=== PATIENT | male | born 1950 | race American Indian/Alaskan Native ===

== ENCOUNTER 2017-06-05 23:05 | Emergency (ER) | payer MEDICARE ==
[2017-06-05 23:05] VITALS: BMI 42.4
[2017-06-05 23:18] VITALS: TEMP 97.9; O2SAT 99
--- NOTE | 2017-06-05 23:26 | C.PDOC ---
History Of Present Illness Pt presents with increasing cough , nonproductive , increasing leg edema. has some chest pain , but only when he coughs. Unable to sleep due to cough. No f/c/ n/v. Speaking gn complete sentences Time Seen by Provider: 06/05/17 23:26 Chief Complaint (Nursing): Shortness Of Breath History Per: Patient, Family History/Exam Limitations: no limitations Onset/Duration Of Symptoms: Days Current Symptoms Are (Timing): Still Present Initiating Event: Upper Respiratory Illness Quality: Dull Exacerbating Factor(s): Exertion, Coughing Current Respiratory Medications: See Home Med List Severity: Moderate Pain Scale Rating Of: 5 Associated Symptoms: Chest Pain (with cough only). denies: Fever, Chills, Anxiety Recent travel outside of the [place]: No Additional History Per: Family Past Medical History Reviewed: Historical Data, Nursing Documentation, Vital Signs Vital Signs: Last Vital Signs Temp 97.9 F 06/05/17 23:15 Pulse 96 H 06/05/17 23:15 Resp 22 06/05/17 23:30 BP 144/83 06/05/17 23:15 Pulse Ox 99 06/05/17 23:42 - Medical History PMH: CAD, CHF, Diabetes, HTN, Hypercholesterolemia Surgical History: Coronary Stent - [facility] Procedures CLOSURE SKIN & SUBCUTANEOUS NEC (06/16/14) CORONAR ARTERIOGR-2 CATH (05/08/14) INFLUENZA VACCINATION (09/27/13) INSERTION OF ONE VASCULAR STENT (05/09/14) INSRT OF DRUG-ELUTING CORON ARTERY STENTS(S) (05/09/14) LEFT HEART CARDIAC CATH (05/08/14) LT HEART ANGIOCARDIOGRAM (05/08/14) PERCUTANEOUS TRANSLUMINAL CORONARY ANGIOPLASTY [PTCA] (05/09/14) PROCEDURE ON SINGLE VESSEL (05/09/14) TETANUS TOXOID ADMINIST (06/16/14) VACCINATION NEC (09/27/13) Family History: States: No Known Family Hx - Social History Hx Tobacco Use: No Hx Alcohol Use: No Hx Substance Use: No - Immunization History Hx Tetanus Toxoid Vaccination: Yes Hx Influenza Vaccination: Yes Hx Pneumococcal Vaccination: Yes Review Of Systems Constitutional: Negative for: Fever, Chills, Weight loss Eyes: Negative for: Vision Change ENT: Negative for: Throat Pain Cardiovascular: Positive for: Chest Pain (with cough only) Respiratory: Positive for: Cough, Shortness of Breath, SOB with Excertion Gastrointestinal: Negative for: Nausea, Vomiting, Abdominal Pain Genitourinary: Negative for: Dysuria Musculoskeletal: Negative for: Back Pain Skin: Negative for: Rash Neurological: Negative for: Weakness Psych: Negative for: Anxiety Physical Exam - Physical Exam Appears: Non-toxic Skin: Warm, Dry Head: Normacephalic Eye(s): bilateral: Normal Inspection Oral Mucosa: Moist Throat: No Erythema Neck: Trachea Midline, Supple Chest: Symmetrical Cardiovascular: Rhythm Regular Respiratory: No Rales, Rhonchi, No Wheezing Gastrointestinal/Abdominal: Bowel Sounds (tympanic to percussion), Soft, No Tenderness, Distention Back: No CVA Tenderness Extremity: Pedal Edema Extremity: Bilateral: Atraumatic Pulses: Left Dorsalis Pedis: Normal, Right Dorsalis Pedis: Normal Neurological/Psych: Oriented x3, Normal Speech, Normal Cognition Gait: Steady ED Course And Treatment - Laboratory Results Result Diagrams: 06/05/17 23:42 06/05/17 23:42 ECG: Interpreted By Me, Viewed By Me ECG Rhythm: Sinus Rhythm (89), Nonspecific Changes O2 Sat by Pulse Oximetry: 99 Pulse Ox Interpretation: Normal - Radiology CXR: Interpreted by Me, Viewed By Me Progress Note: pt states he feels much better and wants to go home. Understands the risks as I've explained at length ,includingworsening condition, permanent disability and . Pt states he will return if symptoms recur Reevaluation Time: 02:10 Reassessment Condition: Improved Disposition Counseled Patient/Family Regarding: Studies Performed, Diagnosis, Need For Followup, Rx Given - Disposition Referrals: Socorro Cuevas MD [Staff Provider] - Disposition: HOME/ ROUTINE Disposition Time: 23:26 Condition: FAIR Prescriptions: Albuterol HFA [Ventolin HFA 90 mcg/actuation (8 g)] 2 puff IH [id number] #1 puff Azithromycin [Zithromax Tri-Ashish] 500 mg PO DAILY #3 tablet Instructions: Acute Bronchitis (ED) Forms: [facility] (Faroese) - Clinical Impression Clinical Impression: Bronchitis
[2017-06-05 23:45] LABS: BASO # 0.1 K/uL (0.0-0.2); BASO % 0.9 % (0.0-2.0); EOS # 0.3 K/uL (0.0-0.7); EOS % 3.6 % (0.0-4.0); HEMATOCRIT 37.4 % (35.0-51.0); LYMPH % 27.9 % (20.0-40.0); MEAN CELL VOLUME 80.1 fL (80.0-94.0); MEAN CORPUSCULAR HEMOGLOBIN 25.2 pg (27.0-31.0); MEAN CORPUSCULAR HGB CONC 31.5 g/dL (33.0-37.0); MONO # 0.8 K/uL (0.0-0.8); MONO % 11.1 % (0.0-10.0); WHITE BLOOD COUNT 7.1 K/uL (4.8-10.8)
[2017-06-05] MEDS: Albuterol-Ipratrop 3 mg / 0.5 (3 ml) UD IH SCH (23:46)
[2017-06-05] MEDS ORDERED: Albuterol-Ipratrop 3 mg / 0.5 (3 ml) UD ONE ×2 (23:47→23:48)
[2017-06-05 23:52] LABS: INR 0.9
[2017-06-05 23:57] LABS: VENOUS BLOOD GAS BASE EXCESS 3.2 mmol/L (0.0-2.0); VENOUS BLOOD GAS PCO2 53 mmHg (40-60); VENOUS BLOOD PH 7.36 (7.32-7.43)
[2017-06-05 23:57] LABS: ALKALINE PHOSPHATASE 64 U/L (38-126); ALT/SGPT 40 U/L (21-72); AST/SGOT 33 U/L (17-59); BILIRUBIN,TOTAL 0.3 mg/dL (0.2-1.3); BLOOD UREA NITROGEN 15 mg/dL (9-20); CALCIUM 8.6 mg/dl (8.6-10.4); CARBON DIOXIDE 25 mmol/L (22-30); CHLORIDE 102 mmol/L (98-107); GFR AFRICAN-AMERICAN > 60; GLUCOSE,RANDOM 189 mg/dL (75-110); POTASSIUM 3.7 mmol/L (3.6-5.2); SODIUM 139 mmol/L (132-148); TOTAL PROTEIN 8.6 g/dL (6.3-8.3)
[2017-06-06] MEDS: Albuterol-Ipratrop 3 mg / 0.5 (3 ml) UD IH SCH ×2 (00:01→00:15)
[2017-06-06 02:32] VITALS: BP 141/81; PULSE 84; RESP 18
--- NOTE | 2017-06-06 08:37 | RAD ---
PROCEDURE: CHEST RADIOGRAPH, 1 VIEW HISTORY: SOB COMPARISON: Chest radiographs 03/31/2016. FINDINGS: LUNGS: History volume appears diminished however mid to inferior patchy pulmonary for infiltrates appear to have resolved in the interval. No acute infiltrate is appreciate bilaterally. PLEURA: No pneumothorax or pleural fluid seen. CARDIOVASCULAR: Stable cardiomegaly. No definite pulmonary vascular derangement identified. OSSEOUS STRUCTURES: No significant abnormalities. VISUALIZED UPPER ABDOMEN: Normal. OTHER FINDINGS: None. IMPRESSION: No acute cardiopulmonary disease appreciable. Prior mid to inferior pulmonary airspace disease appears to have resolved.
== END 2017-06-06 02:35 | disposition home or self-care (01) ==
LOC: C.ER 23:05
DX: J40 Bronchitis, not specified as acute or chronic (principal); E11.9 Type 2 diabetes mellitus without complications; E78.00 Pure hypercholesterolemia, unspecified; I10 Essential (primary) hypertension; I25.10 Atherosclerotic heart disease of native coronary artery without angina pectoris

== ENCOUNTER 2017-06-07 14:17 | Emergency (ER) | payer MEDICARE ==
[2017-06-07 14:29] VITALS: BMI 44.1
[2017-06-07 14:30] VITALS: O2SAT 96
[2017-06-07] MEDS ORDERED: Albuterol-Ipratrop 3 mg / 0.5 (3 ml) UD IH STA ×2 (15:21→16:44)
--- NOTE | 2017-06-07 15:37 | C.PDOC ---
History Of Present Illness 66 yr old male presents to the ER for reevaluation of SOB gradually developing for the past 3-4 days. Patient states it started off as cold symptoms associated with a productive cough with clear sputum. Patient was seen 2 days ago and received Rx: Zithroma, Albuterol without significant improvement. Patient states "feels like water build up in my chest", (+) cough. Otherwise, patient denies fever, chills, headache, dizziness, visual changes, neck pain, chest pain, dyspnea, palpitations, diaphoresis, nausea, vomiting, abdominal pain , back pain, UTI sx. Ambulate to ED for evaluation, not in any apparent distress. Time Seen by Provider: 06/07/17 14:56 Chief Complaint (Nursing): Shortness Of Breath History Per: Patient History/Exam Limitations: no limitations Onset/Duration Of Symptoms: Gradual (5-6 days) Current Symptoms Are (Timing): Still Present Past Medical History Reviewed: Historical Data, Nursing Documentation, Vital Signs Vital Signs: Last Vital Signs Temp 98.5 F 06/07/17 14:30 Pulse 97 H 06/07/17 14:30 Resp 19 06/07/17 15:10 BP 154/88 H 06/07/17 14:30 Pulse Ox 96 06/07/17 17:01 - Medical History PMH: CAD, CHF, Diabetes, HTN, Hypercholesterolemia, Sleep Apnea Other PMH: Obesity Surgical History: Coronary Stent - [facility] Procedures CLOSURE SKIN & SUBCUTANEOUS NEC (06/16/14) CORONAR ARTERIOGR-2 CATH (05/08/14) INFLUENZA VACCINATION (09/27/13) INSERTION OF ONE VASCULAR STENT (05/09/14) INSRT OF DRUG-ELUTING CORON ARTERY STENTS(S) (05/09/14) LEFT HEART CARDIAC CATH (05/08/14) LT HEART ANGIOCARDIOGRAM (05/08/14) PERCUTANEOUS TRANSLUMINAL CORONARY ANGIOPLASTY [PTCA] (05/09/14) PROCEDURE ON SINGLE VESSEL (05/09/14) TETANUS TOXOID ADMINIST (06/16/14) VACCINATION NEC (09/27/13) Family History: States: No Known Family Hx - Social History Hx Tobacco Use: No Hx Alcohol Use: No Hx Substance Use: No - Immunization History Hx Tetanus Toxoid Vaccination: Yes Hx Influenza Vaccination: Yes Hx Pneumococcal Vaccination: Yes Review Of Systems Except As Marked, All Systems Reviewed And Found Negative. Constitutional: Negative for: Fever, Chills Cardiovascular: Negative for: Chest Pain, Palpitations Respiratory: Positive for: Shortness of Breath Gastrointestinal: Negative for: Nausea, Vomiting, Abdominal Pain Genitourinary: Negative for: Dysuria Neurological: Negative for: Weakness, Numbness Physical Exam - Physical Exam Appears: Non-toxic, No Acute Distress Skin: Warm, Dry, No Rash Head: Normacephalic Eye(s): bilateral: PERRL Nose: No Flaring, No Discharge Oral Mucosa: Moist Tongue: Normal Appearing Throat: No Erythema, No Exudate, No Drooling Neck: Supple Cardiovascular: Rhythm Regular, No Murmur, No JVD, Other ((-) carotid bruits B/L ) Respiratory: No Decreased Breath Sounds, No Rhonchi, Wheezing (Right base scattered wheezing) Gastrointestinal/Abdominal: Soft, No Tenderness, No Distention, No Guarding, No Rebound, Other ((+) Obese) Back: No CVA Tenderness Extremity: Normal ROM, No Pedal Edema, No Deformity, No Swelling Neurological/Psych: Oriented x3, Normal Speech ED Course And Treatment - Laboratory Results Result Diagrams: 06/07/17 16:07 06/07/17 16:07 Lab Interpretation: No Acute Changes ECG: Interpreted By Me, Viewed By Me ECG Interpretation: No Changes From Prior (03/03/17) Interpretation Of ECG: SR@87/min, NAD, occasional PVCs,no acute T wave or ST-T changes. O2 Sat by Pulse Oximetry: 96 (RA) Pulse Ox Interpretation: Normal - Other Rad CXR X-Ray: Viewed By Me, Read By Radiologist Interpretation: HISTORY: Shortness of breath. COMPARISON: 06/05/2017. TECHNIQUE: Chest PA and lateral. FINDINGS: LUNGS: Mild to moderate venous congestion. Mild patchy increased markings at the lung bases. Mild linear atelectasis the right midlung zone. PLEURA: As above. CARDIOVASCULAR: Cardiomegaly. Tortuous ectatic aorta. OSSEOUS STRUCTURES: Degenerative changes in the spine and shoulders. VISUALIZED UPPER ABDOMEN: Normal. OTHER FINDINGS: None. IMPRESSION: Mild to moderate venous congestion. Mild patchy increased markings at the lung bases. Mild linear atelectasis the right midlung zone. Cardiomegaly. Tortuous ectatic aorta. Progress Note: Pt was OBS in ED for 3 hours and remained stable during the ED evaluation. Pt reports, moderate improvement in beathing with Neb tx. AFebrile , hemodynamicaly stable. Non-toxic. PulsEOx 96% RA. ENT: NO acute finidngs. Neck: SUpple, (-) JVD, (-) carotid bruits B/L. Lungs: CTA B/L, BS equal B/L. CVS: (+)S1S2, reg. Abd: benign, (-) guarding, (-) rebound, (-) localized tenderness. Back: (-) CVA tenderness. Neurologicaly intact. Blood work including troponin, BNP review and compare to previous visit on 06/05/17 and appears without acute abnormalities. CXR, EKG- no changes compare to old study. Case discussed with ED attending, diagnostics,imaging review and discharge with outpt f/u recommend at present time. Pt has clinical findings c/ w bronchitis r/o asthmatic component. ref. to F/u with PMD in 2-3 days for re- eavl. return to ED if any worsening or new changes. Medical Decision Making Medical Decision Making: PLAN: * CXR * EKG * Troponin * CBC * CMP * BNP * Urinalysis * Albuterol IH Disposition Counseled Patient/Family Regarding: Studies Performed, Diagnosis, Need For Followup, Rx Given - Disposition Referrals: Socorro Cuevas MD [Staff Provider] - Disposition: HOME/ ROUTINE Disposition Time: 17:15 Condition: STABLE Additional Instructions: ENCOURAGE FLUIDS TAKE MEDICATION PRESCRIBED USE INHALER TWICE DAILY FOLLOW UP WITH PMD IN 2-3 DAYS FOR RE-EVALUATION. RETURN TO ED IF ANY WORSENING OR NEW CHANGES. 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 - Scribe Statement The provider has reviewed the documentation as recorded by the Scribe Magi Feliciano All medical record entries made by the Scribe were at my direction and personally dictated by me. I have reviewed the chart and agree that the record accurately reflects my personal performance of the history, physical exam, medical decision making, and the department course for this patient. I have also personally directed, reviewed, and agree with the discharge instructions and disposition.
--- NOTE | 2017-06-07 15:50 | RAD ---
HISTORY: Shortness of breath COMPARISON: 06/05/2017 TECHNIQUE: Chest PA and lateral FINDINGS: LUNGS: Mild to moderate venous congestion. Mild patchy increased markings at the lung bases. Mild linear atelectasis the right midlung zone. PLEURA: As above. CARDIOVASCULAR: Cardiomegaly. Tortuous ectatic aorta. OSSEOUS STRUCTURES: Degenerative changes in the spine and shoulders. VISUALIZED UPPER ABDOMEN: Normal. OTHER FINDINGS: None. IMPRESSION: Mild to moderate venous congestion. Mild patchy increased markings at the lung bases. Mild linear atelectasis the right midlung zone. Cardiomegaly. Tortuous ectatic aorta.
[2017-06-07] MEDS ORDERED: Albuterol-Ipratrop 3 mg / 0.5 (3 ml) UD ONE ×2 (15:52→16:55)
[2017-06-07 16:10] LABS: BASO # 0.1 K/uL (0.0-0.2); BASO % 0.7 % (0.0-2.0); EOS # 0.3 K/uL (0.0-0.7); EOS % 3.2 % (0.0-4.0); HEMATOCRIT 37.2 % (35.0-51.0); LYMPH # 1.8 K/uL (1.0-4.3); LYMPH % 19.6 % (20.0-40.0); MEAN CELL VOLUME 78.9 fL (80.0-94.0); MEAN CORPUSCULAR HEMOGLOBIN 24.8 pg (27.0-31.0); MEAN CORPUSCULAR HGB CONC 31.4 g/dL (33.0-37.0); MEAN PLATELET VOLUME 9.1 fL (7.2-11.7); MONO # 0.8 K/uL (0.0-0.8); MONO % 8.3 % (0.0-10.0); RED CELL DISTRIBUTION WIDTH 16.5 % (11.5-14.5); WHITE BLOOD COUNT 9.2 K/uL (4.8-10.8)
[2017-06-07 16:31] LABS: RBC URINE < 1 /hpf (0-3); URINE BILIRUBIN NEGATIVE (NEGATIVE); URINE BLOOD 1+ (NEGATIVE); URINE COLOR Yellow (YELLOW); URINE GLUCOSE (UA) NORMAL (Normal); URINE KETONE NEGATIVE (NEGATIVE); URINE LEUKOCYTE ESTERASE NEG Leu/uL (Negative); URINE PROTEIN 3+ mg/dL (NEGATIVE); URINE UROBILINOGEN NORMAL mg/dL (0.2-1.0); WBC URINE 1 /hpf (0-5)
[2017-06-07 16:33] LABS: ALKALINE PHOSPHATASE 68 U/L (38-126); ALT/SGPT 45 U/L (21-72); AST/SGOT 34 U/L (17-59); BILIRUBIN,TOTAL 0.5 mg/dL (0.2-1.3); BLOOD UREA NITROGEN 12 mg/dL (9-20); CARBON DIOXIDE 29 mmol/L (22-30); CHLORIDE 102 mmol/L (98-107); GFR AFRICAN-AMERICAN > 60; GLUCOSE,RANDOM 112 mg/dL (75-110); POTASSIUM 3.6 mmol/L (3.6-5.2); SODIUM 140 mmol/L (132-148); TOTAL PROTEIN 8.7 g/dL (6.3-8.3)
[2017-06-07] MEDS ORDERED: MethylPREDNISolone 40 mg Vial IVP STA (16:44)
[2017-06-07] MEDS ORDERED: MethylPREDNISolone 40 mg Vial ONE (16:56)
[2017-06-07] MEDS ORDERED: cefTRIAXone IV 1 gm in Dextros 50 ML IVPB ONE (17:56)
[2017-06-07 18:12] VITALS: BP 129/73; PULSE 100; RESP 20; TEMP 98.4
--- NOTE | 2017-06-09 17:57 | CARD ---
APPROVED REPORT EKG Measurement Heart [id number] <Conclusion> Sinus rhythm with occasional premature ventricular complexes Possible Left atrial enlargement Borderline ECG
== END 2017-06-07 18:50 | disposition home or self-care (01) ==
LOC: C.ER 14:17
DX: J40 Bronchitis, not specified as acute or chronic (principal); R06.00 Dyspnea, unspecified; I10 Essential (primary) hypertension; E78.00 Pure hypercholesterolemia, unspecified; E11.9 Type 2 diabetes mellitus without complications; I25.10 Atherosclerotic heart disease of native coronary artery without angina pectoris
CPT/HCPCS: 71020; 80053; 81001; 82948; 83880; 84484; 85025; 85610; 85730; 87040; 96374; 96375; 99285; J0696; J1940; J2920

== ENCOUNTER 2017-12-01 17:33 | Emergency (ER) | payer MEDICARE ==
[2017-12-01 17:39] VITALS: BMI 42.3
[2017-12-01 17:42] VITALS: TEMP 99.7
--- NOTE | 2017-12-01 18:20 | C.PDOC ---
History Of Present Illness Patient with history of Bronchitis, DM and CHF presents to ED with complaints of constant non productive cough for 4 days. Patient states cough is "very dry" and has not taken any medication for symptoms. Patient denies fever, chest pain , sob, nausea, vomiting or any other complaints at this time. Time Seen by Provider: 12/01/17 17:45 Chief Complaint (Nursing): Cough, Cold, Congestion History Per: Patient History/Exam Limitations: no limitations Onset/Duration Of Symptoms: Days Current Symptoms Are (Timing): Still Present Past Medical History Reviewed: Historical Data, Nursing Documentation, Vital Signs Vital Signs: Last Vital Signs Temp 99.7 F H 12/01/17 17:39 Pulse 94 H 12/01/17 18:52 Resp 20 12/01/17 18:52 BP 173/90 H 12/01/17 18:52 Pulse Ox 98 12/01/17 18:52 - Medical History PMH: CAD, CHF, Diabetes, HTN, Hypercholesterolemia, Sleep Apnea Surgical History: Coronary Stent - [facility] Procedures CLOSURE SKIN & SUBCUTANEOUS NEC (06/16/14) CORONAR ARTERIOGR-2 CATH (05/08/14) INFLUENZA VACCINATION (09/27/13) INSERTION OF ONE VASCULAR STENT (05/09/14) INSRT OF DRUG-ELUTING CORON ARTERY STENTS(S) (05/09/14) LEFT HEART CARDIAC CATH (05/08/14) LT HEART ANGIOCARDIOGRAM (05/08/14) PERCUTANEOUS TRANSLUMINAL CORONARY ANGIOPLASTY [PTCA] (05/09/14) PROCEDURE ON SINGLE VESSEL (05/09/14) TETANUS TOXOID ADMINIST (06/16/14) VACCINATION NEC (09/27/13) Family History: States: No Known Family Hx - Social History Hx Tobacco Use: No Hx Alcohol Use: No Hx Substance Use: No - Immunization History Hx Tetanus Toxoid Vaccination: Yes Hx Influenza Vaccination: Yes Hx Pneumococcal Vaccination: Yes Review Of Systems Except As Marked, All Systems Reviewed And Found Negative. Constitutional: Negative for: Fever, Chills Cardiovascular: Negative for: Chest Pain Respiratory: Positive for: Cough. Negative for: Shortness of Breath Gastrointestinal: Negative for: Nausea, Vomiting Skin: Negative for: Rash Physical Exam - Physical Exam Appears: Non-toxic, No Acute Distress, Other (morbidly obese) Skin: Warm, Dry, No Rash Head: Atraumatic, Normacephalic Eye(s): bilateral: Normal Inspection Oral Mucosa: Moist Neck: Normal ROM, Supple Chest: Symmetrical, No Deformity, No Tenderness Cardiovascular: Rhythm Regular Respiratory: No Rales, Rhonchi (Scattered), No Wheezing Gastrointestinal/Abdominal: Normal Exam, Soft, No Tenderness Back: No CVA Tenderness, No Vertebral Tenderness Extremity: Normal ROM, No Tenderness, No Pedal Edema, Capillary Refill (<2 seconds), No Swelling Neurological/Psych: Oriented x3, Normal Speech, Normal Cognition, Normal Motor Gait: Steady ED Course And Treatment O2 Sat by Pulse Oximetry: 98 (RA) Pulse Ox Interpretation: Normal - Radiology CXR: Interpreted by Me CXR Interpretation: Yes: No Acute Disease. No: Infiltrates Medical Decision Making Medical Decision Making: On re-exam, the patient reports improvement of symptoms. Lungs are CTA, heart is RRR, abdomen is soft, non-tender and tolerating Po well. Ambulatory in the ED with steady gait. Patient was instructed to follow up with the medical doctor /clinic within 1-2 days. Return to the ED if worsened. Disposition - Disposition Referrals: Kirk Jarrett MD [Staff Provider] - Disposition: HOME/ ROUTINE Disposition Time: 18:47 Condition: GOOD Additional Instructions: Follow up with the medical doctor within 1-2 days without fail. Return if worsened. 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 - Scribe Statement The provider has reviewed the documentation as recorded by the Michelle Herrera All medical record entries made by the Michelle were at my direction and personally dictated by me. I have reviewed the chart and agree that the record accurately reflects my personal performance of the history, physical exam, medical decision making, and the department course for this patient. I have also personally directed, reviewed, and agree with the discharge instructions and disposition.
[2017-12-01 18:52] VITALS: BP 173/90; PULSE 94; RESP 20; O2SAT 98
--- NOTE | 2017-12-01 18:53 | RAD ---
HISTORY: cough, copd COMPARISON: Chest radiograph dated 06/07/2017. TECHNIQUE: Chest PA and lateral FINDINGS: LUNGS: Pulmonary vascular congestion. No focal consolidation PLEURA: No significant pleural effusion identified. No pneumothorax apparent. CARDIOVASCULAR: Atherosclerotic aortic calcifications. Cardiomediastinal silhouette stably enlarged. OSSEOUS STRUCTURES: Unchanged. VISUALIZED UPPER ABDOMEN: Normal. OTHER FINDINGS: None. IMPRESSION: Pulmonary vascular congestion. No focal consolidation or pleural effusion.
== END 2017-12-01 19:00 | disposition home or self-care (01) ==
LOC: C.ER 17:33
DX: J40 Bronchitis, not specified as acute or chronic (principal)